=== PATIENT | female | born 2000 | race Two or more races ===

== ENCOUNTER 2025-03-25 14:13 | Inpatient (IN) | payer MEDICAID, OTHER ==
[~2025-03-25] VITALS: Ht 157.5 cm; Wt 62.6 kg
[2025-03-25 14:46] LABS: Basophils # (auto) 0 10 ^3/uL (0-0.2); Basophils % (auto) 0.3 % (0.0-2.0); Eosinophils # (auto) 0.1 10 ^3/uL (0-0.8); Eosinophils % (auto) 0.8 % (0.0-7.0); Hematocrit 31.8 % (36.0-46.0); Hemoglobin 10.9 g/dL (12.2-16.2); Lymphocytes # (auto) 1.5 10 ^3/uL (0.4-5.4); Lymphocytes % (auto) 19.5 % (10.0-50.0); Mean Corpuscular Hgb Conc. 34.3 g/dL (32.0-36.0); Mean Corpuscular Volume 90.5 fL (80.0-100.0); Monocytes # (auto) 0.9 10 ^3/uL (0-1.3); Monocytes % (auto) 10.8 % (0.0-12.0); Neutrophils # (auto) 5.4 10 ^3/uL (1.6-8.6); Neutrophils % (auto) 68.6 % (37.0-80.0); Platelet Count (auto) 292 10^3/uL (140-450); Red Blood Cells 3.51 10^6/uL (4.0-5.20); Red Cell Distribution Width 14.3 % (11.8-14.3); White Blood Cell 7.9 10^3/uL (4.4-10.8)
--- NOTE | 2025-03-25 14:52 | ECG ---
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
[2025-03-25 15:06] LABS: Alanine Aminotransferase 16 U/L (7-40); Albumin 3.9 g/dL (3.2-4.8); Alkaline Phosphatase 104 U/L (46-116); Anion Gap 7 (5-15); Aspartate Aminotransferase 18 U/L (13-40); Calcium 9.2 mg/dL (8.7-10.4); Carbon Dioxide 25 mmol/L (20-31); Glucose 93 mg/dL (74-106); Lipase 40 U/L (12-53); Potassium 3.8 mmol/L (3.5-5.1); Sodium 139 mmol/L (136-145); Total Protein 6.4 g/dL (5.7-8.2)
[2025-03-25 15:08] LABS: Bilirubin, Total 0.2 mg/dL (0.2-1.0); Blood Urea Nitrogen 8 mg/dL (9-23); Chloride 107 mmol/L (98-107)
[2025-03-25] MEDS: METOCLOPRAMIDE HCL 5MG/ml INJ 2ml VIAL IV ONE (15:47)
[2025-03-25] MEDS: SODIUM CHLORIDE 0.9% 2,000 ML IV ONE (15:47)
[2025-03-25 15:59] LABS: Urine Amorphous Crystal FEW /hpf (None Seen); Urine Bacteria MOD /hpf (None Seen); Urine Blood Negative /uL (Negative); Urine Clarity Clear (Clear); Urine Color Colorless (Yellow); Urine Protein, UAD Negative (Negative); Urine Specific Gravity 1.002 (1.001-1.035); Urine Squamous Epithelial Cell FEW /hpf (<5); Urine Urobilinogen Normal (Negative); Urine WBC 5 /HPF (0-5)
[2025-03-25 16:03] VITALS: PULSE 84; RESP 18; O2SAT 96
--- NOTE | 2025-03-25 16:34 | ED.PDOC ---
History of Present Illness HPI Comments 24-year-old female with current 26 week brought in by family complaining of palpitations for the last 2 days. Patient reports she had 2 syncopal episodes, 1 yesterday and 1 today, associated with nausea. She denies any vomiting, diarrhea, dysuria, abdominal/pelvic pain or vaginal bleeding. She states her abdomen feels hard, but has not been painful and she is not feeling contractions. She denies chest pain, shortness of breath, extremity pain or edema, however she does state she feels lightheaded. 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 week ) 2 Para 1 Family History Family History: Reviewed,noncontributory to illness Social History Smoker: Non-Smoker Alcohol: Denies ETOH Use Drugs: Denies Drug Use Lives In: Home Constitutional: denies: chills, diaphoresis, fatigue, fever, malaise, sweats, weakness, others EENTM: denies: blurred vision, double vision, ear bleeding, ear discharge, ear drainage, ear pain, ear ringing, eye pain, eye redness, hearing loss, mouth pain, mouth swelling, nasal discharge, nose bleeding, nose congestion, nose pain, photophobia, tearing, throat pain, throat swelling, voice changes, others Respiratory: denies: cough, hemoptysis, orthopnea, SOB at rest, shortness of breath, SOB with excertion, stridor, wheezing, others Cardiovascular: reports: syncope; denies: chest pain, dizzy spells, diaphoresis, Dyspnea on exertion, edema, irregular heart beat, left arm pain, lightheadedness, palpitations, PND, others Gastrointestinal: denies: abdomen distended, abdominal pain, blood streaked bowels, constipated, diarrhea, dysphagia, difficulty swallowing, hematemesis, melena, nausea, poor appetite, poor fluid intake, rectal bleeding, rectal pain, vomiting, others Genitourinary: reports: (26 weeks); denies: abnormal vagina bleeding, burning, dyspareunia, dysuria, flank pain, frequency, hematuria, incontinence, pain, vagina discharge, urgency, others Neurological: reports: dizziness; denies: fainting, headache, left sided numbness, left sided weakness, numbness, paresthesia, pre-existing deficit, right sided numbness, right sided weakness, seizure, speech problems, tingling, tremors, weakness, others Musculoskeletal: denies: back pain, gout, joint pain, joint swelling, muscle pain, muscle stiffness, neck pain, others Integumetry: denies: bruises, change in color, change in hair/nails, dryness, laceration, lesions, lumps, rash, wounds, others Allergic/Immunocompromised: denies: Difficulty Healing, Frequent Infections, Hives, Itching, others Hematologic/Lymphatic: denies: anemia, blood clots, easy bleeding, easy bruising, swollen glands, others Endocrine: denies: excessive hunger, excessive sweating, excessive thirst, excessive urination, flushing, intolerance to cold, intolerance to heat, unexplained weight gain, unexplained weight loss, others Psychiatric: denies: anxiety, bipolar disorder, depression, hopeless, panic disorder, schizophrenia, sleepless, suicidal, others All Other Systems: Reviewed and Negative Physical Exam General Appearance: Mild Distress HEENT: Other (Pupils and face symmetric. Moist mucous membranes.) Neck: Full Range of Motion, Normal Inspection Respiratory: Lungs Clear, No Accessory Muscle Use, No Respiratory Distress, Normal Breath Sounds Cardiovascular: No Edema, No JVD, Regular Rate/Rhythm Breast Exam: Deferred Gastrointestinal: Non Tender, Other (Firm) Genitalia: Deferred Pelvic: Deferred Rectal: Deferred Extremities: No calf tenderness, Normal inspection, Normal range of motion, Non-tender, No pedal edema Neurologic: Alert (Oriented x4), Normal Affect, Normal Mood, Other (Ambulatory) Cerebellar Function: NOT DONE Reflexes: NOT DONE Skin: Dry, Normal Color, Warm Lymphatic: NOT DONE Was a procedure done? Was a procedure done?: No Differential Dx Considerations may include: Arrhythmia, PE, vasovagal syncope, hypovolemia/orthostasis, CVA, TIA, intr acranial mass lesion, carotid insufficiency, infection/sepsis, mi, CHF/cardiomyopathy, among others X-Ray, Labs, Meds, VS Vital Signs Date Time Temp Pulse Resp B/P (MAP) Pulse Ox O2 Delivery O2 Flow Rate FiO2 03/25/25 20:30 Room Air* 0 21 03/25/25 20:30 97.6 75 14 98/61 (73) 97 97.6 03/25/25 16:08 97.8 74 16 116/59 (78) 98 97.8 03/25/25 16:03 84 18 96 Room Air* 0 21 03/25/25 14:46 79 03/25/25 14:30 98.1 95 16 143/91 (108) 96 98.1 138/83 (101) Lab Test 03/25/25 18:42 03/25/25 16:20 03/25/25 14:43 03/25/25 14:37 Range/Units Troponin I High Sensitivity < 3 L 3 L </=34 ng/L Urine Color Colorless Yellow Urine Clarity Clear Clear Urine pH 7.0 5.0-9.0 Urine Specific [place] 1.002 1.001-1.035 Urine Protein Negative Negative Urine Ketones Negative Negative Urine Blood Negative Negative /uL Urine Nitrite Negative Negative Urine Bilirubin Negative Negative Urine Urobilinogen Normal Negative mg/dL Urine Leukocyte Esterase 2+ Negative /uL Urine RBC 1 0 - 4 /hpf Urine Microscopic WBC 5 0-5 /HPF Urine Squamous Epithelial Cells Few <5 /hpf Urine Amorphous Crystals Few None Seen /hpf Urine Bacteria Mod H None Seen /hpf Urine Glucose Normal Normal mg/dL Urine Test Positive Negative POC Glucose 92 70-106 mg/dl White Blood Count 7.9 4.4-10.8 10^3/uL Red Blood Count 3.51 L 4.0-5.20 10^6/uL Hemoglobin 10.9 L 12.2-16.2 g/dL Hematocrit 31.8 L 36.0-46.0 % Mean Corpuscular Volume 90.5 80.0-100.0 fL Mean Corpuscular Hemoglobin 31.0 28.0-32.0 pg Mean Corpuscular Hemoglobin Concent 34.3 32.0-36.0 g/dL Red Cell Distribution Width 14.3 11.8-14.3 % Platelet Count 292 140-450 10^3/uL Mean Platelet Volume 7.1 6.9-10.8 fL Neutrophils (%) (Auto) 68.6 37.0-80.0 % Lymphocytes (%) (Auto) 19.5 10.0-50.0 % Monocytes (%) (Auto) 10.8 0.0-12.0 % Eosinophils (%) (Auto) 0.8 0.0-7.0 % Basophils (%) (Auto) 0.3 0.0-2.0 % Neutrophils # (Auto) 5.4 1.6-8.6 10 ^3/uL Lymphocytes # (Auto) 1.5 0.4-5.4 10 ^3/uL Monocytes # (Auto) 0.9 0-1.3 10 ^3/uL Eosinophils # (Auto) 0.1 0-0.8 10 ^3/uL Basophils # (Auto) 0 0-0.2 10 ^3/uL Nucleated Red Blood Cells 0.0 % D-Dimer, Quantitative 3.25 H 0.0-0.49 mg/L FEU Sodium Level 139 136-145 mmol/L Potassium Level 3.8 3.5-5.1 mmol/L Chloride Level 107 98-107 mmol/L Carbon Dioxide Level 25 20-31 mmol/L Anion Gap 7 5-15 Blood Urea Nitrogen 8 L 9-23 mg/dL Creatinine 0.47 L 0.550-1.02 mg/dL Glomerular Filtration Rate Calc 135 >90 mL/min BUN/Creatinine Ratio 17.0 10.0-20.0 Serum Glucose 93 74-106 mg/dL Lactic Acid Level 1.0 0.4-2.0 mmol/L Calcium Level 9.2 8.7-10.4 mg/dL Total Bilirubin 0.2 0.2-1.0 mg/dL Aspartate Amino Transferase (AST) 18 13-40 U/L Alanine Aminotransferase (ALT) 16 7-40 U/L Alkaline Phosphatase 104 46-116 U/L B-Type Natriuretic Peptide 27.88 0-100 pg/mL Total Protein 6.4 5.7-8.2 g/dL Albumin 3.9 3.2-4.8 g/dL Lipase 40 12-53 U/L Current Medications Medications (Trade) Dose Ordered Sig/Juan Daniel Route Start Time Stop Time Status Last Admin Sodium Chloride 2,000 ml @ 1,000 mls/hr Q2H ONCE IV 03/25/25 15:00 03/25/25 16:59 DC 03/25/25 15:47 Metoclopramide HCl (Reglan Injection) 10 mg ONCE ONCE IV 03/25/25 15:00 03/25/25 15:01 DC 03/25/25 15:47 Ceftriaxone Sodium 50 ml @ 100 mls/hr ONCE ONCE IV 03/25/25 19:15 03/25/25 20:02 DC 03/25/25 20:35 PROCEDURE(s): BLDVT - BiLat Lower DVT REASON: sycope ORDER NUMBER(s): [id number], ACCESSION NUMBER(s): [id number] Procedure: US BiLat Lower DVT Study Date and Requested Time: 03/25/2025 04:26 PM History: sycope Comparison: None Technique: Multiple high resolution saavedra-scale images with and without compression obtained of the bilateral lower extremity veins, including the common femoral vein, deep femoral vein, proximal mid and distal superficial femoral vein, and popliteal vein. Additional limited images of the greater saphenous vein also obtained. Augmentation performed as indicated. Color and spectral doppler flow images obtained as indicated. Findings: No visible intraluminal venous thrombus. No evidence of incompressibility or abnormal color or spectral Doppler flow visualized in the bilateral lower extremity veins including, the common femoral vein, deep femoral vein, proximal mid and distal superficial femoral vein, and popliteal vein. Greater saphenous vein grossly unremarkable. Impression: No sonographic evidence of bilateral lower extremity deep venous thrombosis. X-Ray, Labs, Meds, VS Comment 24-year-old female with current 26 week complaining of palpitations, 2 syncopal episodes nausea Vitals remarkable for BP 143/91 Exam remarkable for mild distress, no abdominal tenderness Rhythm strip independently interpreted by me: Sinus rhythm, rate 95, no ectopy. Chest x-ray patient refused Bilateral lower extremity ultrasound negative for DVT CBC, metabolic panel, BNP and troponin unremarkable, D-dimer 3.25, UA positive for leukocyte esterase, WBCs, squamous epithelial cells and moderate bacteria Patient treated with the following in the ED: 1 L 0.9 normal saline IV bolus, Rocephin 1 g IV, morphine 2 mg IV, Reglan 10 mg IV On re-evaluation, vitals were stable, patient is not in distress. Plan is to admit the patient for V/Q scan in the morning to rule out PE. Time of 1ST Reevaluation: 16:20 Reevaluation 1ST: Unchanged Patient Education/Counseling: Diagnosis, Treatment, Prognosis Family Education/Counseling: No Family Present Departure 1 Departure Time of Disposition: 00:56 Impression: Primary Impression: Syncope Additional Impressions: Palpitations Elevated d-dimer UTI (urinary tract infection) Disposition: ADMITTED INPATIENT Admit to: Tele Condition: Guarded Critical Care Note Critical Care Time?: No Stability Stability form required: No Heart Score Heart Score: Heart Score Response (Comments) Value History N/A 0 EKG N/A 0 Age N/A 0 Risk Factors N/A 0 Troponin N/A 0 Total 0 I personally scribed for ZACH MCINTYRE MD ([email or web address]) on 03/25/25 at 16:34. Electronically submitted by Wander Gandhi ([email or web address]). I personally scribed for ZACH MCINTYRE MD ([email or web address]) on 03/25/25 at 17:26. Electronically submitted by Wander Gandhi ([email or web address]). ZACH MCINTYRE MD Mar 25, 2025 16:34
--- NOTE | 2025-03-25 16:52 | DVH ---
Procedure: US BiLat Lower DVT Study Date and Requested Time: 03/25/2025 04:26 PM History: sycope Comparison: None Technique: Multiple high resolution saavedra-scale images with and without compression obtained of the bi lateral lower extremity veins, including the common femoral vein, deep femoral vein, proximal mid and distal superficial femoral vein, and popliteal vein. Additional limited images of the greater saphen ous vein also obtained. Augmentation performed as indicated. Color and spectral doppler flow images o btained as indicated. Findings: No visible intraluminal venous thrombus. No evidence of incompressibility or abnormal color or spectr al Doppler flow visualized in the bilateral lower extremity veins including, the common femoral vein, deep femoral vein, proximal mid and distal superficial femoral vein, and popliteal vein. Greater sap henous vein grossly unremarkable. Impression: No sonographic evidence of bilateral lower extremity deep venous thrombosis.
[2025-03-25] MEDS: cefTRIAXone 1GM/50ML D5W 50 ML IV ONE (20:35)
[2025-03-25] MEDS ORDERED: ONDANSETRON HCL 4 MG/2 ML VIAL IV PRN (23:00)
[2025-03-25] MEDS ORDERED: NITROGLYCERIN 0.4 MG SL TAB SL PRN (23:00)
[2025-03-25] MEDS ORDERED: MORPHINE SULFATE INJ 2 MG/ml SYRG IV PRN (23:00)
--- NOTE | 2025-03-25 23:04 | DVHHP2 ---
History of Present Illness Reason for Visit: Palpitations History of Present Illness 24-year-old female presents for evaluation of palpitations. Patient reports episodes of palpitations and syncopal events since becoming . Patient currently undergoing a 26 week . Reports feeling palpitations, sree rtness for breath as well as bilateral arm tingling and subsequently having syncopal episode. Last syncopal episode was today in the afternoon. Denies head trauma. Past Medical History Denies Past Surgical History Denies Family History Noncontributory Smoke: No ALCOHOL: none Drugs: None Lives: with Family Review of Systems Review of Systems Review of systems are currently negative otherwise addressed in HPI. Allergies: Coded Allergies: NO KNOWN ALLERGIES (Unverified , 03/25/25) Exam Vital Signs Vital Signs Date Time Temp Pulse Resp B/P (MAP) Pulse Ox O2 Delivery O2 Flow Rate FiO2 03/25/25 20:30 Room Air* 0 21 03/25/25 20:30 97.6 75 14 98/61 (73) 97 97.6 Exam Gen: 24-year-old female in no apparent distress. Skin: Warm, dry, normal color and texture, no rash. HEENT: Normocephalic atraumatic, mucous membranes moist and pink. Neck: Cervical and supraclavicular nodes normal without enlargement, trachea is midline, thyroid gland is normal without masses. Pulmonary: Clear to auscultation and percussion bilaterally. Cardiac: Regular rate and rhythm. No murmur Abdomen: Soft, nontender, nondistended, bowel sounds present all 4 quadrants, no guarding, no rigidity, no organomegaly. Extremities: No cyanosis, clubbing, no edema Neuro: Cranial nerves II through XII grossly intact, normal affect and speech, no focal motor deficits. Labs/Xrays ORDERING PHYSICIAN: ZACH MCINTYRE MD PROCEDURE(s): BLDVT - BiLat Lower DVT REASON: sycope ORDER NUMBER(s): [id number], ACCESSION NUMBER(s): [id number] Procedure: US BiLat Lower DVT Study Date and Requested Time: 03/25/2025 04:26 PM History: sycope Comparison: None Technique: Multiple high resolution saavedra-scale images with and without compression obtained of the bilateral lower extremity veins, including the common femoral vein, deep femoral vein, proximal mid and distal superficial femoral vein, and popliteal vein. Additional limited images of the greater saphenous vein also obtained. Augmentation performed as indicated. Color and sp ectral doppler flow images obtained as indicated. Findings: No visible intraluminal venous thrombus. No evidence of incompressibility or abnormal color or spectral Doppler flow visualized in the bilateral lower extremity veins including, the common femoral vein, deep femoral vein, proximal mid and distal superficial femoral vein, and popliteal vein. Greater saphenous vein grossly unremarkable. Impression: No sonographic evidence of bilateral lower extremity deep venous thrombosis. Labs Test 03/25/25 18:42 03/25/25 14:43 03/25/25 14:37 Range/Units Troponin I High Sensitivity < 3 L </=34 ng/L Urine Color Colorless Yellow Urine Clarity Clear Clear Urine pH 7.0 5.0-9.0 Urine Specific [place] 1.002 1.001-1.035 Urine Protein Negative Negative Urine Ketones Negative Negative Urine Blood Negative Negative /uL Urine Nitrite Negative Negative Urine Bilirubin Negative Negative Urine Urobilinogen Normal Negative mg/dL Urine Leukocyte Esterase 2+ Negative /uL Urine RBC 1 0 - 4 /hpf Urine Microscopic WBC 5 0-5 /HPF Urine Squamous Epithelial Cells Few <5 /hpf Urine Amorphous Crystals Few None Seen /hpf Urine Bacteria Mod H None Seen /hpf Urine Glucose Normal Normal mg/dL Urine Test Positive Negative POC Glucose 92 70-106 mg/dl White Blood Count 7.9 4.4-10.8 10^3/uL Red Blood Count 3.51 L 4.0-5.20 10^6/uL Hemoglobin 10.9 L 12.2-16.2 g/dL Hematocrit 31.8 L 36.0-46.0 % Mean Corpuscular Volume 90.5 80.0-100.0 fL Mean Corpuscular Hemoglobin 31.0 28.0-32.0 pg Mean Corpuscular Hemoglobin Concent 34.3 32.0-36.0 g/dL Red Cell Distribution Width 14.3 11.8-14.3 % Platelet Count 292 140-450 10^3/uL Mean Platelet Volume 7.1 6.9-10.8 fL Neutrophils (%) (Auto) 68.6 37.0-80.0 % Lymphocytes (%) (Auto) 19.5 10.0-50.0 % Monocytes (%) (Auto) 10.8 0.0-12.0 % Eosinophils (%) (Auto) 0.8 0.0-7.0 % Basophils (%) (Auto) 0.3 0.0-2.0 % Neutrophils # (Auto) 5.4 1.6-8.6 10 ^3/uL Lymphocytes # (Auto) 1.5 0.4-5.4 10 ^3/uL Monocytes # (Auto) 0.9 0-1.3 10 ^3/uL Eosinophils # (Auto) 0.1 0-0.8 10 ^3/uL Basophils # (Auto) 0 0-0.2 10 ^3/uL Nucleated Red Blood Cells 0.0 % D-Dimer, Quantitative 3.25 H 0.0-0.49 mg/L FEU Sodium Level 139 136-145 mmol/L Potassium Level 3.8 3.5-5.1 mmol/L Chloride Level 107 98-107 mmol/L Carbon Dioxide Level 25 20-31 mmol/L Anion Gap 7 5-15 Blood Urea Nitrogen 8 L 9-23 mg/dL Creatinine 0.47 L 0.550-1.02 mg/dL Glomerular Filtration Rate Calc 135 >90 mL/min BUN/Creatinine Ratio 17.0 10.0-20.0 Serum Glucose 93 74-106 mg/dL Lactic Acid Level 1.0 0.4-2.0 mmol/L Calcium Level 9.2 8.7-10.4 mg/dL Total Bilirubin 0.2 0.2-1.0 mg/dL Aspartate Amino Transferase (AST) 18 13-40 U/L Alanine Aminotransferase (ALT) 16 7-40 U/L Alkaline Phosphatase 104 46-116 U/L B-Type Natriuretic Peptide 27.88 0-100 pg/mL Total Protein 6.4 5.7-8.2 g/dL Albumin 3.9 3.2-4.8 g/dL Lipase 40 12-53 U/L Assessment/Plan Assessment/Plan Assessment Syncope Palpitations Elevated D-dimer Twenty-six week Plan Admit the patient to telemetry to the hospitalist Echocardiogram pending to assess for possible right heart strain. OBGYN consultation Continue treatment per orders. Plan discussed with: Patient My Orders Orders - THOMAS GARCIA Procedure Category Date Status Time Ceftriaxone Ivpb PHA 03/26/25 Verified Rocephin 09:00 * Belly Roller Consultation CONS 03/25/25 Verified 22:57 Admit ADMIT 03/25/25 Verified 22:57 Ondansetron Hcl PHA 03/25/25 Verified (Zofran) 23:00 Echo 2d Mode Cardiac US 03/25/25 Verified DOP 22:57 Condition: Fair MARIANNA 03/25/25 Verified 22:57 Bedrest With Bathroom [facility] 03/25/25 Verified Privileg 22:57 Nitroglycerin [facility] 03/25/25 Verified Sublingual (Ntrostat 23:00 Morphine Sulfate PHA 03/25/25 Verified Injection 23:00 Stat Ekg For Chest [facility] 03/25/25 Verified Pain 22:57 Notify Md Of Changes [facility] 03/25/25 Verified From Base 22:57 Pharmacy Service Associate For [facility] 03/25/25 Verified 24 Hours 22:57 Emergency Dysrhythmia [facility] 03/25/25 Verified Protocol 22:57 Rhythm Strips Once [facility] 03/25/25 Verified Every Shift 22:57 Oxygen By Nasal RT 03/25/25 Verified Cannula 22:57 Date of Service: Mar 25, 2025 Billing Provider: THOMAS GARCIA Common Visit Codes: [id number] INP/OBS CARE (HIGH) THOMAS GARCIA Mar 25, 2025 23:04
[2025-03-25 23:55] VITALS: RESP 18; O2SAT 98
[2025-03-26] VITALS (9 sets, daily range): BP systolic 90–106; BP diastolic 49–64; PULSE 74–102; RESP 18–20; TEMP 98–98.3; O2SAT 96–98
[2025-03-26] MEDS ORDERED: PREN-96 PO (00:57)
--- NOTE | 2025-03-26 12:09 | DVHPN2 ---
Subjective The patient is seen and examined at bedside. No complaint today. Reviewed: Care Plan, H&P, Labs, Medications, Previous Orders, Radiology Changes from previous H/P or p: No Changes Objective Vitals Vital Signs Date Time Temp Pulse Resp B/P (MAP) Pulse Ox O2 Delivery O2 Flow Rate FiO2 03/26/25 08:42 98.0 81 20 102/59 (73) 98 98.0 03/26/25 03:28 Room Air* 0 21 Intake/Output Intake and Output 03/26/25 07:00 Intake Total 2050 ml Balance 2050 ml Intake IV Total 2050 ml # Voids 1 General Appearance: Alert, Oriented X3, Cooperative, No acute distress HEENT: Atraumatic, PERRLA, EOMI, Mucous membr. moist/pink Neck: Supple Lungs: Clear to auscultation, Normal air movement Cardiovascular: Regular rate, Normal S1, Normal S2, No murmurs, Gallops, Rubs Abdomen: Normal bowel sounds, Soft, No tenderness Neuro: Cranial nerves 3-12 NL Psych/Mental Status: Mental status NL Medications Current Medications Medications Dose Ordered Sig/Juan Daniel Route Start Time Stop Time Status Last Admin Dose Admin Ceftriaxone Sodium 50 ml @ 100 mls/hr DAILY@09 IV 03/26/25 09:00 Ondansetron HCl 4 mg Q4HP PRN IV 03/25/25 23:00 Nitroglycerin 0.4 mg Q5MINP PRN SL 03/25/25 23:00 Morphine Sulfate 2 mg Q30M PRN IV 03/25/25 23:00 Laboratory Results Laboratory Tests 03/25/25 14:37 Chemistry Test 03/25/25 14:37 Albumin 3.9 g/dL (3.2-4.8) Calcium Level 9.2 mg/dL (8.7-10.4) Total Protein 6.4 g/dL (5.7-8.2) Coagulation Test 03/25/25 14:37 D-Dimer, Quantitative 3.25 mg/L FEU (0.0-0.49) H Lipid panel Test 03/25/25 14:37 Lipase 40 U/L (12-53) Cardiac Markers Test 03/25/25 14:37 B-Type Natriuretic Peptide 27.88 pg/mL (0-100) LFT Test 03/25/25 14:37 Alanine Aminotransferase (ALT) 16 U/L (7-40) Alkaline Phosphatase 104 U/L (46-116) Aspartate Amino Transferase (AST) 18 U/L (13-40) Total Bilirubin 0.2 mg/dL (0.2-1.0) Urinalysis Test 03/25/25 14:43 Urine Color Colorless (Yellow) Urine Clarity Clear (Clear) Urine pH 7.0 (5.0-9.0) Urine Specific [place] 1.002 (1.001-1.035) Urine Protein Negative (Negative) Urine Ketones Negative (Negative) Urine Blood Negative /uL (Negative) Urine Nitrite Negative (Negative) Urine Bilirubin Negative (Negative) Urine Urobilinogen Normal mg/dL (Negative) Urine Leukocyte Esterase 2+ /uL (Negative) Urine RBC 1 /hpf (0 - 4) Urine Microscopic WBC 5 /HPF (0-5) Urine Squamous Epithelial Cells Few /hpf (<5) Urine Amorphous Crystals Few /hpf (None Seen) Urine Bacteria Mod /hpf (None Seen) H Urine Glucose Normal mg/dL (Normal) Urine Test Positive (Negative) Labs and/or images reviewed: Labs reviewed by me Assessment/Plan Assessment/Plan Syncope Palpitations Elevated D-dimer Twenty-six week Plan Continuing current management. Continuing with IV fluid Waiting for local area network systems adminstrator to see the patient. Echocardiogram pending to assess for possible right heart strain. OBGYN consultation Discussed with and patient regarding to plan of care. This medical document was created using an electronic medical record system with [employer] direct computerized dictation system. Although this document has been carefully reviewed, there may still be some phonetic and typographical errors. These areas are purely typographical due to imperfections of the software programs, and do not reflect any compromise in the patient's medical care. Plan discussed with: Patient Date of Service: March 26, 2025 Billing Provider: GRICELDA FERNANDEZ MD Common Visit Codes: [id number] INP/OBS CARE(HIGH) GRICELDA FERNANDEZ MD March 26, 2025 12:09
[2025-03-26] MEDS: cefTRIAXone 1GM/50ML D5W 50 ML IV SCH (12:49)
--- NOTE | 2025-03-26 13:22 | DVHSR ---
APPROVED REPORT EXAM: Two-dimensional and M-mode echocardiogram with Doppler and color Doppler. Blood Pressure: 90/49 mmHg INDICATION Syncope Palpitations RISK FACTORS Height: 5'2", Weight: 132 DIMENSIONS LVDd4.7 (3.8-5.7cm)LA (2D)3.4 (1.9-4.0cm)Aortic Root2.8 (2.0-3.7cm) LVDs3.1 (2.5-4.0cm)LA (MM) (1.9-4.0cm)Aortic Cusp Exc1.9 (1.5-2.0cm) EF (%) 64.0 (55-70%)Rt. Atrium3.5 (1.9-4.0cm)Asc. Aorta2.5 cm IVSd0.5 (0.7-1.1cm)RV (D)3.5 (1.8-2.4cm) PWd0.6 (0.7-1.1cm) Mitral Valve MitralMitral Stenosis E wave0.99m/sMV Mean GR.mmHg A wave0.72m/sMV Peak GR.mmHg E/A ratio1.42D MVAcm2 DECEL [id number] 1/2 Timems Aortic Valve Aortic ValveAortic Stenosis V10.90m/[place] Mean GR.5mmHg V21.43m/[place] Peak GR.8mmHg LVOT Diameter1.9 (1.8-2.4cm)Doppler AVA1.78cm2 Pulmonic Valve V21.11m/s Tricuspid Valve TR Velocity2.11m/s [id number] Other Information Quality : Technically LimitedRhythm : Technically limited study due to body habitus. Conclusion lvef 65% normal LV function and size normal RV function normal atria no severe valve abnormalities noted normal pericardium
[2025-03-27 01:00] VITALS: BP 92/50; PULSE 82; RESP 20; TEMP 98.5; O2SAT 98
[2025-03-27 04:43] VITALS: BP 100/61; PULSE 67; RESP 20; TEMP 97.5; O2SAT 99
[2025-03-27 08:00] VITALS: PULSE 75
[2025-03-27 09:00] VITALS: BP 100/56; PULSE 84; RESP 16; TEMP 98.1; O2SAT 98
--- NOTE | 2025-03-27 12:15 | DVHPN2 ---
Subjective The patient is seen and examined at bedside. No complaint today. Reviewed: Care Plan, H&P, Labs, Medications, Previous Orders, Radiology Objective Vitals Vital Signs Date Time Temp Pulse Resp B/P (MAP) Pulse Ox O2 Delivery O2 Flow Rate FiO2 03/27/25 09:00 98.1 84 16 100/56 (71) 98 98.1 03/27/25 07:50 Room Air* 0 21 Intake/Output Intake and Output 03/27/25 07:00 Intake Total 1395 ml Balance 1395 ml Intake Oral 1395 ml # Voids 7 # Bowel Movements 1 General Appearance: Alert, Oriented X3, Cooperative, No acute distress HEENT: Atraumatic, PERRLA, EOMI, Mucous membr. moist/pink Neck: Supple Lungs: Clear to auscultation, Normal air movement Cardiovascular: Regular rate, Normal S1, Normal S2, No murmurs, Gallops, Rubs Abdomen: Normal bowel sounds, Soft, No tenderness Neuro: Cranial nerves 3-12 NL Psych/Mental Status: Mental status NL Medications Current Medications Medications Dose Ordered Sig/Juan Daniel Route Start Time Stop Time Status Last Admin Dose Admin Ceftriaxone Sodium 50 ml @ 100 mls/hr DAILY@09 IV 03/26/25 09:00 03/27/25 09:32 100 MLS/HR Ondansetron HCl 4 mg Q4HP PRN IV 03/25/25 23:00 Nitroglycerin 0.4 mg Q5MINP PRN SL 03/25/25 23:00 Morphine Sulfate 2 mg Q30M PRN IV 03/25/25 23:00 Laboratory Results Laboratory Tests 03/25/25 14:37 Urinalysis Test 03/25/25 14:43 Urine Color Colorless (Yellow) Urine Clarity Clear (Clear) Urine pH 7.0 (5.0-9.0) Urine Specific [place] 1.002 (1.001-1.035) Urine Protein Negative (Negative) Urine Ketones Negative (Negative) Urine Blood Negative /uL (Negative) Urine Nitrite Negative (Negative) Urine Bilirubin Negative (Negative) Urine Urobilinogen Normal mg/dL (Negative) Urine Leukocyte Esterase 2+ /uL (Negative) Urine RBC 1 /hpf (0 - 4) Urine Microscopic WBC 5 /HPF (0-5) Urine Squamous Epithelial Cells Few /hpf (<5) Urine Amorphous Crystals Few /hpf (None Seen) Urine Bacteria Mod /hpf (None Seen) H Urine Glucose Normal mg/dL (Normal) Urine Test Positive (Negative) Assessment/Plan Assessment/Plan Syncope Palpitations Elevated D-dimer Twenty-six week Plan Continuing current management. Continuing with IV fluid Waiting for cable armorer to see the patient. Echocardiogram pending to assess for possible right heart strain. OBGYN consultation Discussed with and patient regarding to plan of care. This medical document was created using an electronic medical record system with [employer] direct computerized dictation system. Although this document has been carefully reviewed, there may still be some phonetic and typographical errors. These areas are purely typographical due to imperfections of the software programs, and do not reflect any compromise in the patient's medical care. GRICELDA FERNANDEZ MD March 27, 2025 12:15
[2025-03-27 13:00] VITALS: BP 107/64; PULSE 106; RESP 16; TEMP 98.3; O2SAT 99
--- NOTE | 2025-03-27 13:30 | DVHDS2 ---
Discharge Summary Date of Admission Mar 25, 2025 at 22:57 Date of Discharge: March 27, 2025 Admitting Diagnosis Syncope Palpitations Elevated D-dimer Twenty-six week Labs/Diagnostic Data: Laboratory Results Test 03/25/25 18:42 03/25/25 14:43 03/25/25 14:37 Troponin I High Sensitivity < 3 ng/L (</=34) Urine Color Colorless (Yellow) Urine Clarity Clear (Clear) Urine pH 7.0 (5.0-9.0) Urine Specific [place] 1.002 (1.001-1.035) Urine Protein Negative (Negative) Urine Ketones Negative (Negative) Urine Blood Negative /uL (Negative) Urine Nitrite Negative (Negative) Urine Bilirubin Negative (Negative) Urine Urobilinogen Normal mg/dL (Negative) Urine Leukocyte Esterase 2+ /uL (Negative) Urine RBC 1 /hpf (0 - 4) Urine Microscopic WBC 5 /HPF (0-5) Urine Squamous Epithelial Cells Few /hpf (<5) Urine Amorphous Crystals Few /hpf (None Seen) Urine Bacteria Mod /hpf (None Seen) Urine Glucose Normal mg/dL (Normal) Urine Test Positive (Negative) POC Glucose 92 mg/dl (70-106) White Blood Count 7.9 10^3/uL (4.4-10.8) Red Blood Count 3.51 10^6/uL (4.0-5.20) Hemoglobin 10.9 g/dL (12.2-16.2) Hematocrit 31.8 % (36.0-46.0) Mean Corpuscular Volume 90.5 fL (80.0-100.0) Mean Corpuscular Hemoglobin 31.0 pg (28.0-32.0) Mean Corpuscular Hemoglobin Concent 34.3 g/dL (32.0-36.0) Red Cell Distribution Width 14.3 % (11.8-14.3) Platelet Count 292 10^3/uL (140-450) Mean Platelet Volume 7.1 fL (6.9-10.8) Neutrophils (%) (Auto) 68.6 % (37.0-80.0) Lymphocytes (%) (Auto) 19.5 % (10.0-50.0) Monocytes (%) (Auto) 10.8 % (0.0-12.0) Eosinophils (%) (Auto) 0.8 % (0.0-7.0) Basophils (%) (Auto) 0.3 % (0.0-2.0) Neutrophils # (Auto) 5.4 10 ^3/uL (1.6-8.6) Lymphocytes # (Auto) 1.5 10 ^3/uL (0.4-5.4) Monocytes # (Auto) 0.9 10 ^3/uL (0-1.3) Eosinophils # (Auto) 0.1 10 ^3/uL (0-0.8) Basophils # (Auto) 0 10 ^3/uL (0-0.2) Nucleated Red Blood Cells 0.0 % D-Dimer, Quantitative 3.25 mg/L FEU (0.0-0.49) Sodium Level 139 mmol/L (136-145) Potassium Level 3.8 mmol/L (3.5-5.1) Chloride Level 107 mmol/L (98-107) Carbon Dioxide Level 25 mmol/L (20-31) Anion Gap 7 (5-15) Blood Urea Nitrogen 8 mg/dL (9-23) Creatinine 0.47 mg/dL (0.550-1.02) Glomerular Filtration Rate Calc 135 mL/min (>90) BUN/Creatinine Ratio 17.0 (10.0-20.0) Serum Glucose 93 mg/dL (74-106) Lactic Acid Level 1.0 mmol/L (0.4-2.0) Calcium Level 9.2 mg/dL (8.7-10.4) Total Bilirubin 0.2 mg/dL (0.2-1.0) Aspartate Amino Transferase (AST) 18 U/L (13-40) Alanine Aminotransferase (ALT) 16 U/L (7-40) Alkaline Phosphatase 104 U/L (46-116) B-Type Natriuretic Peptide 27.88 pg/mL (0-100) Total Protein 6.4 g/dL (5.7-8.2) Albumin 3.9 g/dL (3.2-4.8) Lipase 40 U/L (12-53) Other Laboratory Tests 03/25/25 14:37 Brief Hx & Hospital Course: This is a 24 female come to emergency department for her palpitation and syncopal episode. The patient said she become and started having syncopal episode couple days ago. Patient feel palpitation, shortness for breath as well as bilateral arm tingling. The patient was admitted. Workup was done. The patient's US le negative for DVT. The patient's echo is normal. No structural heart abnormal. EF is 65%. OBGYN see the patient and recommend outpatient follow up. Patient apparently to be dehydrated I advised her to drink plenty of water. Today I am discharge her home. Follow up with primary care physician 1-2 weeks. Follow up with OBGYN per schedule. Activity as tolerated. Diet per home diet. Physical exam: HEENT: Normocephalic atraumatic pupils equal react to light and accommodation. Extraocular muscles intact, conjunctiva pink, oropharynx moist, no thrush, no exudate. Lymphatic: No lymphadenopathy Cardiovascular exam: S1, S2 was heard. No murmurs, rubs, gallops Lung: Clear on auscultation bilaterally, no wheeze, rale, rhonchi. GI: Abdominal soft, nondistended, nontenderness, positive bowel sounds. Extremity: No crepitus, cyanosis, edema. Pedal pulses present bilateral. Full range of motion. Skin: Normal turgor, no rash. Psych: Alert, oriented x3. Neurology: No focal deficits, cranial nerve II to XII grossly intact. This medical document was created using an electronic medical record system with [employer] direct computerized dictation system. Although this document has been carefully reviewed, there may still be some phonetic and typographical errors. These areas are purely typographical due to imperfections of the software programs, and do not reflect any compromise in the patient's medical care. Condition at Discharge: Stable Final Diagnosis/Problems List Syncope Dehydration Palpitations Elevated D-dimer Twenty-six week Discharge Disposition: Home Discharge Statement: "Patient was advised to return to the ER or call 911 if any headaches, dizziness, shortness of breath, chest pain, abdominal pain, bleeding, fevers, or worsening of medical condition. Patient was counseled about treatment plan, medications, possible side effects, patientverbalized understanding. All questions were answered to the best of my ability. This discharge took greater then 30 minutes in planning, reviewing documentation, counseling the patient, and discussing with other team members." ASSESSMENT ASSESSMENT Assessment Date of Service: March 27, 2025 Billing Provider: GRICELDA FERNANDEZ MD Common Visit Codes: 24135-ELI/OBS DISCH DAY >30min GRICELDA FERNANDEZ MD March 27, 2025 13:30
--- NOTE | 2025-03-27 14:34 | DVHINCON2 ---
Date of service: March 26, 2025 Referring Physician hospitalist Reason for Consultation syncope History of Present Illness pt is admitted for syncope,palapatation,no rom or vag bleeding. pt is 24wks preg with no established ob .she had some n/v.echo was nl as well as dvt scan was nl Past Medical History na Past Surgical History na Family History na Social History na Patient Family History: Diabetes mellitus G8 FATHER Allergies: Coded Allergies: NO KNOWN ALLERGIES (Unverified , 03/25/25) Home Meds Reported Medications Vit W/ Ferrous Fumara ( One Daily) Daily Tab, 1 TAB PO DAILY, #90 TAB 3 Refills 03/26/25 Review of Systems Constitutional: no fever, chill, weight loss HEENT: no eye pain, no hearing loss, no oral lesion, no scleral icterus Heart: no chest pain, no chest pressure Lung: no cough, no dyspnea with exertion Abdomen: see HPI : no pain with urination, normal appearing urine Musculoskeletal: no joint pain, no muscle pain Neurological: no seizure, no loss of sensation, no weakness in extremities Pysch: no depression, no anxiety Derm: no rash, no jaundice Vital Signs Vital Signs Date Time Temp Pulse Resp B/P (MAP) Pulse Ox O2 Delivery O2 Flow Rate FiO2 03/27/25 13:00 98.3 106 16 107/64 (78) 99 98.3 03/27/25 07:50 Room Air* 0 21 Physical Exam SKIN: [nl] HEENT:nl NECK: nl CARDIAC: rrr PULMONARY:cta ABDOMEN: [soft,gravid pos fh] MUSCULOSKELETAL: [nl] NEURO: [nl] pelvic- no bleding,cx closed,uterus 26wks Labs/Diagnostic Data Labs Test 03/25/25 18:42 03/25/25 14:43 03/25/25 14:37 Range/Units Troponin I High Sensitivity < 3 L </=34 ng/L Urine Color Colorless Yellow Urine Clarity Clear Clear Urine pH 7.0 5.0-9.0 Urine Specific [place] 1.002 1.001-1.035 Urine Protein Negative Negative Urine Ketones Negative Negative Urine Blood Negative Negative /uL Urine Nitrite Negative Negative Urine Bilirubin Negative Negative Urine Urobilinogen Normal Negative mg/dL Urine Leukocyte Esterase 2+ Negative /uL Urine RBC 1 0 - 4 /hpf Urine Microscopic WBC 5 0-5 /HPF Urine Squamous Epithelial Cells Few <5 /hpf Urine Amorphous Crystals Few None Seen /hpf Urine Bacteria Mod H None Seen /hpf Urine Glucose Normal Normal mg/dL Urine Test Positive Negative POC Glucose 92 70-106 mg/dl White Blood Count 7.9 4.4-10.8 10^3/uL Red Blood Count 3.51 L 4.0-5.20 10^6/uL Hemoglobin 10.9 L 12.2-16.2 g/dL Hematocrit 31.8 L 36.0-46.0 % Mean Corpuscular Volume 90.5 80.0-100.0 fL Mean Corpuscular Hemoglobin 31.0 28.0-32.0 pg Mean Corpuscular Hemoglobin Concent 34.3 32.0-36.0 g/dL Red Cell Distribution Width 14.3 11.8-14.3 % Platelet Count 292 140-450 10^3/uL Mean Platelet Volume 7.1 6.9-10.8 fL Neutrophils (%) (Auto) 68.6 37.0-80.0 % Lymphocytes (%) (Auto) 19.5 10.0-50.0 % Monocytes (%) (Auto) 10.8 0.0-12.0 % Eosinophils (%) (Auto) 0.8 0.0-7.0 % Basophils (%) (Auto) 0.3 0.0-2.0 % Neutrophils # (Auto) 5.4 1.6-8.6 10 ^3/uL Lymphocytes # (Auto) 1.5 0.4-5.4 10 ^3/uL Monocytes # (Auto) 0.9 0-1.3 10 ^3/uL Eosinophils # (Auto) 0.1 0-0.8 10 ^3/uL Basophils # (Auto) 0 0-0.2 10 ^3/uL Nucleated Red Blood Cells 0.0 % D-Dimer, Quantitative 3.25 H 0.0-0.49 mg/L FEU Sodium Level 139 136-145 mmol/L Potassium Level 3.8 3.5-5.1 mmol/L Chloride Level 107 98-107 mmol/L Carbon Dioxide Level 25 20-31 mmol/L Anion Gap 7 5-15 Blood Urea Nitrogen 8 L 9-23 mg/dL Creatinine 0.47 L 0.550-1.02 mg/dL Glomerular Filtration Rate Calc 135 >90 mL/min BUN/Creatinine Ratio 17.0 10.0-20.0 Serum Glucose 93 74-106 mg/dL Lactic Acid Level 1.0 0.4-2.0 mmol/L Calcium Level 9.2 8.7-10.4 mg/dL Total Bilirubin 0.2 0.2-1.0 mg/dL Aspartate Amino Transferase (AST) 18 13-40 U/L Alanine Aminotransferase (ALT) 16 7-40 U/L Alkaline Phosphatase 104 46-116 U/L B-Type Natriuretic Peptide 27.88 0-100 pg/mL Total Protein 6.4 5.7-8.2 g/dL Albumin 3.9 3.2-4.8 g/dL Lipase 40 12-53 U/L Primary Diagnosis syncope 2' Diagnosis/Comorbidities iup at 26wks stable Plan fu with me for ob establishement Plan discussed with: Patient Visit Coding OBGYN Date of Service: March 26, 2025 Billing Provider: MIC TODD DO GENERAL COUNSEL Common Visit Codes: 06259-GVD/OBS SAME DATE (HIGH) GENERAL COUNSEL Consultation Codes: 61489-[id number] CONSULT <110MIN, 04297-E/U INPATIENT CONSULT (LOW) MIC TODD DO March 27, 2025 14:34
== END 2025-03-27 15:41 | disposition home or self-care (01) | DRG 566 ==
LOC: ER 14:13 → OVERFLOW 22:57 → TELE-WESTW 03-26 02:40
PROVIDERS: ADMIT Internal Medicine; ATTEND Internal Medicine
DX: O26.892 Other specified pregnancy related conditions, second trimester (principal); E86.0 Dehydration; O23.42 Unspecified infection of urinary tract in pregnancy, second trimester; N39.0 Urinary tract infection, site not specified; R00.2 Palpitations; Z3A.26 26 weeks gestation of pregnancy
CPT/HCPCS: 36415; 80053; 81001; 81025; 82962; 83605; 83690; 83880; 84484; 85025; 85379; 93005; 93306; 93970; 96361; 96374; G0378